=== PATIENT | female | born 1980 | race African-American/Black ===

== ENCOUNTER 2016-10-28 15:36 | Emergency (ER) | payer OTHER ==
[2016-10-28 17:15] LABS: HEMATOCRIT 37.5 % (36.0-48.0); HEMOGLOBIN 12.6 g/dL (12.0-16.0); MEAN CORPUS HGB CONC 33.6 g/dL (32.0-36.0); MEAN CORPUSCULAR HEMOGLOB 27.3 pg (26.0-34.0); MEAN CORPUSCULAR VOLUME 81.3 fL (80-100); MEAN PLATELET VOLUME 10.2 fL (9.2-13.0); PLATELET COUNT 182 10/3/uL (150-400); RBC DISTRIBUTION WIDTH 16.6 % (12.0-16.0); RED CELL COUNT 4.61 10/6/uL (4.0-5.6); WHITE BLOOD CELLS 3.4 10/3/uL (4.5-10.5)
[2016-10-28 17:31] LABS: A/G RATIO 0.9 (0.7-1.9); ALBUMIN 4.1 G/DL (3.5-5.0); ALKALINE PHOSPHATASE 108 U/L (45-117); BUN (BLOOD UREA NITROGEN) 6 MG/DL (6-23); CALCIUM, SERUM 8.7 MG/DL (8.5-10.4); CHLORIDE, SERUM 102 MMOL/L (96-112); CO2 (CARBON DIOXIDE) 27 MMOL/L (24-34); CREATININE 0.77 MG/DL (0.55-1.02); GFR AFRICAN AMERICAN 115 ML/MIN (>=60); GFR NON AFRICAN AMERICAN 99 ML/MIN (>=60); GLOBULIN 4.5 G/DL (2.5-4.1); GLUCOSE, SERUM 82 MG/DL (60-99); POTASSIUM, SERUM 3.6 MMOL/L (3.5-5.3); SGOT(AST) 108 U/L (5-40); SGPT(ALT) 104 U/L (5-65); SODIUM, SERUM 140 MMOL/L (135-148); TOTAL BILIRUBIN 0.6 MG/DL (0-1.2); TOTAL PROTEIN 8.6 G/DL (6.0-8.5)
[2016-10-28 18:02] LABS: EOSINOPHILS 3 %; LYMPHOCYTES 41 %; LYMPHOCYTES ABSOLUTE (CALC) 1.39 10/3/uL (0.67-4.30); MONOCYTES 4 %; MONOCYTES ABSOLUTE (CALC) 0.14 10/3/uL (0.21-1.20); NEUTROPHILS ABSOLUTE (CALC) 1.77 10/3/uL (2.02-8.40); SEGMENTED NEUTROPHIL (0) 52 %; TOTAL NUCLEATED CELLS 100
[2016-10-28 18:03] LABS: PLATELET ESTIMATE ADQ (ADEQUATE)
[2016-10-28 18:04] LABS: ANISOCYTOSIS 1+ (5-10/OIF) (0-5/OIF)
[2016-10-28 18:25] LABS: DIFFERENTIAL ORDERED Y
[2016-10-28 19:34] LABS: ASCORBIC ACID (UR NOT ORDER) NEG (NEG); BILIRUBIN, URINE NEGATIVE (NEG); ER URINALYSIS TAT 0 Hrs 14 Mins; KETONE, URINE 20 MG/DL (NEG); LEUKOCYTE ESTERASE(NOT OR NEG (NEG); NITRITE (URINE) NEG (NEG); WBC (NOT ORDERED) (RFLEX) 3 (0-5)
== END 2016-10-28 19:44 | disposition home or self-care (01) ==
LOC: ER 15:36
PROVIDERS: Physician Assistant
DX: K02.9 Dental caries, unspecified (principal); I10 Essential (primary) hypertension; Z88.0 Allergy status to penicillin
CPT/HCPCS: 80053; 81001; 85007; 85027; 93005; 99284; A9270-GY

== ENCOUNTER 2016-11-08 09:31 | Inpatient (IN) | payer OTHER ==
--- NOTE | ~2016-11-08 | HP ---
History And Physical [id number] [place]. [address] NAME: CECILIA ESTRADA : [birth year] STATUS : ADM IN [facility]#: [id number] AGE: 35 ADM/REG DATE : 11/08/16 MR#: [id number] REPORT SERV DATE: 11/08/16 DICTATED BY: ASHLEY THOMAS DATE: 11/08/16 REPORT STATUS : Draft TRANSCRIBED BY: MODL DATE: 11/08/16 DATE OF ADMISSION: 11/08/2016 EXAMINING PHYSICIAN: Ashley Thomas MD REASON FOR ADMISSION: Abdominal pain. HISTORY OF PRESENT ILLNESS: This is a 35-year-old black female who had significant drinking history from the time she was about 14 until she quit one year ago when she was 34. She quit because her children wanted her to do that. She came into the emergency room today because of severe nausea, vomiting, diarrhea. This began about 6 p.m. last evening and has continued with acceleration around 1 a.m. with excessive diarrhea and vomiting. Her throat is sore now from the excessive vomiting. She came to the emergency room and was seen by Dr. Nair, who gave her an antiemetic and she improved. He also got a CT scan of her abdomen that showed extensive fatty infiltration of her liver and some ascites in both the upper and lower abdomen. She denies any recent alcohol use, drug abuse, or infection. PAST MEDICAL HISTORY: She is on no medications. She has not been in the hospital recently. Review of previous records indicates the patient was in the emergency room on Saturday the . Records are not available. Urinalysis was obtained showing five white cells per high-powered field. She was started on IV Levaquin before evaluation. Urine specific gravity was 1.024 with evidence of dehydration and pH of 6. Her pain is not aggravated or relieved by eating or motion. This started in the right upper quadrant, radiated down the right side and into the pelvis, now is concentrated in the lower anterior pelvis. She has not eaten since last evening. Her urine ketones were 80 mg%. Creatinine was 0.9 with a BUN of 14. SOCIAL HISTORY: She lives in [facility] with her four children, aged 16, 14, 13, and 11. She is not . She attended [employer] in the past and grew up in [place]. Her mother had 10 children, five brothers and five sisters. No particular diseases were known to run in the family. Her father has a pacemaker. Mother had stomach cancer and is now. She drank for 20 years from age 14 to age 34, straight vodka generally. FAMILY HISTORY: As above, mother had stomach cancer. Father pacemaker. History And Physical [address] [place]. [address] NAME: CECILIA ESTRADA : [birth year] STATUS : ADM IN [facility]#: [id number] AGE: 35 ADM/REG DATE : 11/08/16 MR#: [id number] REPORT SERV DATE: 11/08/16 DICTATED BY: ASHLEY THOMAS DATE: 11/08/16 REPORT STATUS : Draft TRANSCRIBED BY: EVELYN DATE: 11/08/16 REVIEW OF SYSTEMS: She has had no headache or stiff neck and no fever, though she had some chills. The diarrhea sent her to the bathroom multiple occasions through the night. She has had no hemoptysis, no hematemesis, no melena. No fits, seizures, convulsions, unilateral weakness. Her menstrual periods are normal. Her last menstrual period was 10/17, normal without excessive flow. The remainder of the review of systems is negative. PHYSICAL EXAMINATION: VITAL SIGNS: Blood pressure is 110/70 with a heart rate 108, respiratory rate 18 to 20. Afebrile. HEENT: EOMI. Sclerae clear. Conjunctivae pink. NECK: No bruit without any JVD. CHEST: Clear to A and P. HEART: Regular S1, S2 without murmur, gallop, or click. ABDOMEN: Guarded throughout, tender throughout. Bowel sounds are positive. No masses felt. EXTREMITIES: No edema. Distal pulses are intact, dorsalis pedis and posterior tibial. NEUROLOGIC: She withdraws to plantar stimulation. [employer] is symmetric bilaterally. Coordination is intact. She has no tremor. She is symmetric neurologically. Her speech is goal directed and cogent. SKIN: Without rash, ecchymosis, or bruising. She has some scarring on her abdomen and on her face from acne formed-like scars. LYMPHATICS: Negative. LABORATORY: Sodium 137, potassium 4.4, carbon dioxide was 18, BUN 14, creatinine 9.0. Her total protein was 8.7, albumin 3.9. The globulin was 4.8. The AST was 88 with SGPT of 82. Her creatinine is normal. Initial urinalysis showed a greater than 182 white cells per high-powered field. Cultures requested, that was done at 0900 with a repeat urinalysis done at 12:46 p.m. The white count was 12,900, hemoglobin 15.9, hematocrit 45.5, platelets 250,000. ASSESSMENT: 1. Probable urinary tract infection with lower abdominal pain started on IV Levaquin. We will continue to hydrate and continue the Levaquin. 2. Fatty liver with history of alcohol use of 20 years duration, quit one year ago. I suspect this is part of the problem causing the pain. We will continue to treat. 3. History of alcohol use or possibly alcoholism, quit now one year ago. She used to drink straight vodka and had done so since age 14 to 34. 4. History of pharyngitis secondary to acid vomitus. 5. Nausea and vomiting. 6. Diarrhea. We will check stool for WBCs and blood. I am going to go ahead and give her some Pepto-Bismol tablets for this as well while we are treating the urinary tract infection. PLAN: Treat urinary tract infection. Treat pain. Treat diarrhea. Treat nausea and History And Physical [address] [address] NAME: CECILIA ESTRADA : 78 STATUS : ADM IN [facility]#: [id number] AGE: 35 ADM/REG DATE : 11/08/16 MR#: [id number] REPORT SERV DATE: 11/08/16 DICTATED BY: ASHLEY THOMAS DATE: 11/08/16 REPORT STATUS : Draft TRANSCRIBED BY: MODL DATE: 11/08/16 vomiting. She should be able to go home tomorrow if the disease leaves as quickly as it came on. The fatty liver may be due to the previous history of alcohol intake probably with some degree of cirrhosis having developed with the patient having had much more than two-ounce equivalent of alcohol daily. DB/MODL Ashley Thomas M.D. / [id number] CC: Vania Sheriff M.D. [facility]
--- NOTE | ~2016-11-08 | DS ---
Discharge Summary [address] [place]. [address] NAME: CECILIA ESTRADA : 78 STATUS : ADM [facility] PAT#: [id number] AGE: 35 ADM/REG DATE : 11/08/16 MR#: [id number] REPORT SERV DATE: 11/12/16 DICTATED BY: NEEMA DIXON DATE: 11/12/16 REPORT STATUS : Draft TRANSCRIBED BY: MODL DATE: 11/12/16 ADMISSION DATE: 11/08/2016 DISCHARGE DATE: 11/12/2016 FINAL HOSPITAL DIAGNOSES: 1. Urinary tract infection. 2. Fatty liver with remote history of alcohol use. 3. Nausea, vomiting and diarrhea, resolved. CONSULTATIONS: None. PROCEDURES: 1. CT scan of the abdomen and pelvis done on 11/08, showing hepatic steatosis, new since 2006. No definitive CT evidence for acute gallbladder pathology. No biliary ductal dilatation seen. Small-volume ascites in the abdomen. Kroyp-bu-dvtfctox ascites in the pelvis. Limited examination due to no IV contrast and poor fat planes. 2. Ultrasound of the abdomen done on 11/09, showing unremarkable abdominal ultrasound survey. Diffusely fatty infiltrated liver. Contracted gallbladder. No ascites or adele evidence of hepatic cirrhosis. CURRENT PHYSICAL FINDINGS AND HISTORY OF PRESENT ILLNESS: Please see dictated H and P by Dr. Blunt. In brief, the patient is a 35-year-old female, who presented with complaint of nausea, vomiting, and diarrhea. Initial evaluation in the emergency room questioned a UTI and the noted changes to her liver since prior exam. HOSPITAL COURSE: Initial vital signs, BP was 126/80, temp was 98.0, and the patient has had no fever during her hospital stay. Heart rates have been in the 50s. Lab work, initial procalcitonin was 0.23. BMP on presentation showed a CO2 of 18, which corrected to 23 the following day. Cholesterol was 204, triglycerides were 37. Albumin was 3.9. LFTs initially showed AST and ALT of 88 and 82, decreasing to 79 and 60; total bilirubin was not elevated on admit, 0.9 was the admitting bilirubin; alkaline phosphatase was 101 and 73 respectively. C-reactive protein was 3.7. HCG was negative. Hepatitis panel was nonreactive. Initial white count was 12.9, subsequent was 4.3; post hydration H and H were 11 and 33; platelet counts were 251 and 154 respectively. Sedimentation rate was 7. Several urinalyses were done. However, no culture results are available. CT scan and ultrasound were noted above. The patient was admitted for UTI or viral illness. She was started on antiemetics, IV fluids, reasonable pain medications and she had abrupt resolution of her symptoms. She was able to tolerate increasing diet. No stool samples were done as the patient had no further diarrhea during her hospital stay. She responded well to IV fluids and had decreasing abdominal pain. Further efforts were made to delineate the etiology of her liver disease as noted above. There were no other gross abnormalities on her CT. She did not have elevated triglycerides. Her iron count was 42. Inflammatory markers were normal, but she does have a significant past history of ETOH. She had no other significant complaints and was discharged in stable condition. DISPOSITION: She will be discharged home. Prescriptions will be Aldactone 50 mg per day, Discharge Summary [address] [address] NAME: CECILIA ESTRADA : 78 STATUS : ADM [facility] PAT#: [id number] AGE: 35 ADM/REG DATE : 11/08/16 MR#: [id number] REPORT SERV DATE: 11/12/16 DICTATED BY: NEEMA DIXON DATE: 11/12/16 REPORT STATUS : Draft TRANSCRIBED BY: EVELYN DATE: 11/12/16 Ultram 50 q.6 p.r.n., and Levaquin 750 to complete a seven-day course, #3 tabs, no refills. We will refer her to a PCP to establish to further pursue her liver evaluation. She has fortunately been off alcohol for some time. She will return for any recurrence of symptoms. I did discuss with Radiology prior to discharge, and it was not felt there was enough fluid to safely perform a paracentesis. DAVIF/EVELYN Neema Dixon M.D. / [id number] CC: Neema Dixon M.D.
[2016-11-08 09:37] LABS: BASOPHILS 0 %; EOSINOPHILS 0 %; IMMATURE GRANULOCYTES 0.2 %; IMMATURE GRANULOCYTES ABSOLUTE 0.03 10/3/uL (0.0-0.11); LYMPHOCYTES 5.4 %; LYMPHOCYTES ABSOLUTE 0.69 10/3/uL (0.67-4.30); MEAN CORPUS HGB CONC 34.9 g/dL (32.0-36.0); MEAN CORPUSCULAR HEMOGLOB 28.1 pg (26.0-34.0); MEAN CORPUSCULAR VOLUME 80.4 fL (80-100); MEAN PLATELET VOLUME 10.8 fL (9.2-13.0); MONOCYTES 1.3 %; MONOCYTES ABSOLUTE 0.17 10/3/uL (0.21-1.20); NEUTROPHILS 93.1 %; NEUTROPHILS ABSOLUTE 11.96 10/3/uL (2.02-8.40); RBC DISTRIBUTION WIDTH 17.3 % (12.0-16.0)
[2016-11-08 09:41] LABS: ER CBC TAT 0 Hrs 07 Mins; HEMATOCRIT 45.5 % (36.0-48.0); HEMOGLOBIN 15.9 g/dL (12.0-16.0); MANUAL DIFF NO %; PLATELET COUNT 251 10/3/uL (150-400); RED CELL COUNT 5.66 10/6/uL (4.0-5.6); WHITE BLOOD CELLS 12.9 10/3/uL (4.5-10.5)
[2016-11-08 09:48] LABS: ASCORBIC ACID (UR NOT ORDER) NEG (NEG); BILIRUBIN, URINE NEGATIVE (NEG); ER URINALYSIS TAT 0 Hrs 14 Mins; KETONE, URINE 20 MG/DL (NEG); LEUKOCYTE ESTERASE(NOT OR NEG (NEG); NITRITE (URINE) NEG (NEG); WBC (NOT ORDERED) (RFLEX) 5 (0-5)
[2016-11-08 09:53] LABS: A/G RATIO 0.8 (0.7-1.9); ALBUMIN 3.9 G/DL (3.5-5.0); ALKALINE PHOSPHATASE 101 U/L (45-117); CALCIUM, SERUM 8.7 MG/DL (8.5-10.4); CHLORIDE, SERUM 100 MMOL/L (96-112); GFR AFRICAN AMERICAN 95 ML/MIN (>=60); GFR NON AFRICAN AMERICAN 82 ML/MIN (>=60); GLOBULIN 4.8 G/DL (2.5-4.1); GLUCOSE, SERUM 87 MG/DL (60-99); SGOT(AST) 88 U/L (5-40); SGPT(ALT) 82 U/L (5-65); SODIUM, SERUM 137 MMOL/L (135-148); TOTAL BILIRUBIN 0.9 MG/DL (0-1.2); TOTAL PROTEIN 8.7 G/DL (6.0-8.5)
[2016-11-08 09:54] LABS: BUN (BLOOD UREA NITROGEN) 14 MG/DL (6-23); CO2 (CARBON DIOXIDE) 18 MMOL/L (24-34); POTASSIUM, SERUM 4.4 MMOL/L (3.5-5.3)
[2016-11-08] MEDS ORDERED: *DENIES (12:25)
[2016-11-08 12:40] LABS: ASCORBIC ACID (UR NOT ORDER) NEG (NEG); BILIRUBIN, URINE NEGATIVE (NEG); ER URINALYSIS TAT 0 Hrs 08 Mins; KETONE, URINE 80 MG/DL (NEG); LEUKOCYTE ESTERASE(NOT OR NEG (NEG); NITRITE (URINE) NEG (NEG); WBC (NOT ORDERED) (RFLEX) 1 (0-5)
[2016-11-08 14:40] LABS: C-REACTIVE PROTEIN 3.7 MG/L (<8.0)
[2016-11-08 15:00] LABS: PROCALCITONIN 0.23 ng/mL (<0.5)
[2016-11-09 05:48] LABS: ASCORBIC ACID (UR NOT ORDER) NEG (NEG); BILIRUBIN, URINE NEGATIVE (NEG); KETONE, URINE TRACE MG/DL (NEG); LEUKOCYTE ESTERASE(NOT OR NEG (NEG); WBC (NOT ORDERED) (RFLEX) 1 (0-5)
[2016-11-09 06:42] LABS: BASOPHILS 0 %; EOSINOPHILS 0.5 %; EOSINOPHILS ABSOLUTE 0.02 10/3/uL (0.0-0.53); IMMATURE GRANULOCYTES 0.2 %; IMMATURE GRANULOCYTES ABSOLUTE 0.01 10/3/uL (0.0-0.11); LYMPHOCYTES ABSOLUTE 1.26 10/3/uL (0.67-4.30); MEAN CORPUSCULAR HEMOGLOB 27.1 pg (26.0-34.0); MEAN CORPUSCULAR VOLUME 81.8 fL (80-100); MEAN PLATELET VOLUME 10.9 fL (9.2-13.0); MONOCYTES 7.8 %; MONOCYTES ABSOLUTE 0.34 10/3/uL (0.21-1.20); NEUTROPHILS 62.5 %; NEUTROPHILS ABSOLUTE 2.71 10/3/uL (2.02-8.40); RBC DISTRIBUTION WIDTH 16.8 % (12.0-16.0)
[2016-11-09 06:43] LABS: HEMATOCRIT 33.2 % (36.0-48.0); MANUAL DIFF NO %; MEAN CORPUS HGB CONC 33.1 g/dL (32.0-36.0); PLATELET COUNT 154 10/3/uL (150-400); RED CELL COUNT 4.06 10/6/uL (4.0-5.6); WHITE BLOOD CELLS 4.3 10/3/uL (4.5-10.5)
[2016-11-09 07:12] LABS: BUN (BLOOD UREA NITROGEN) 11 MG/DL (6-23); CALCIUM, SERUM 7.9 MG/DL (8.5-10.4); CHLORIDE, SERUM 102 MMOL/L (96-112); CHOL/HDL RATIO(NOT ORDER) 1.1 (0-5); CHOLESTEROL 204 MG/DL (< 200); CREATININE 0.78 MG/DL (0.55-1.02); GFR AFRICAN AMERICAN 113 ML/MIN (>=60); GFR NON AFRICAN AMERICAN 98 ML/MIN (>=60); GLUCOSE, SERUM 93 MG/DL (60-99); HDL CHOLESTEROL 180 MG/DL (> 49); LDL CHOLESTEROL 17 MG/DL (< 130); NON-HDL CHOLESTEROL 24 MG/DL (< 160); SGPT(ALT) 60 U/L (5-65); SODIUM, SERUM 135 MMOL/L (135-148); TOTAL PROTEIN 7.3 G/DL (6.0-8.5); TRIGLYCERIDE 37 MG/DL (< 150)
[2016-11-09 07:20] LABS: A/G RATIO 0.7 (0.7-1.9); ALBUMIN 3.1 G/DL (3.5-5.0); ALKALINE PHOSPHATASE 73 U/L (45-117); CO2 (CARBON DIOXIDE) 23 MMOL/L (24-34); GLOBULIN 4.2 G/DL (2.5-4.1); TOTAL BILIRUBIN 1.5 MG/DL (0-1.2)
[2016-11-09 07:21] LABS: SGOT(AST) 79 U/L (5-40)
[2016-11-10 17:14] LABS: IRON, SERUM 42 MCG/DL (35-150)
[2016-11-12 08:49] LABS: HEPATITIS B SURFACE ANTIGEN NON-REACTIVE (NON-REACT)
[2016-11-12 09:15] LABS: HEPATITIS C ANTIBODY NON-REACTIVE (NON-REACT)
[2016-11-12 09:16] LABS: HEPATITIS B CORE AB IGM NON-REACTIVE (NON-REAC)
[2016-11-12 09:18] LABS: HEP A ANTIBODY IGM NON-REACTIVE (NON-REACT)
[2016-11-12] MEDS ORDERED: ULTRAM50 PO (11:31)
[2016-11-12] MEDS ORDERED: SPIRO25 PO (11:31)
[2016-11-12] MEDS ORDERED: LEVAQUIN750 MG PO (11:32)
== END 2016-11-12 14:55 | disposition home or self-care (01) | DRG 690 ==
LOC: ER 09:31 → 4SO 13:31
PROVIDERS: Hospitalist; Internal Medicine
DX: N39.0 Urinary tract infection, site not specified (principal); R18.8 Other ascites; K70.0 Alcoholic fatty liver; F10.21 Alcohol dependence, in remission
CPT/HCPCS: 74176; 76700; 80053; 80061; 80074; 81001; 83540; 83690; 84145; 84703; 85025; 85652; 86140; 96365; 96375; 99285; A9270-GY; J1170; J1956; J2405; J3411